=== PATIENT | female | born 1980 | race Caucasian/White ===

== ENCOUNTER 2017-10-29 07:05 | Day surgery (SDC) | payer OTHER ==
--- NOTE | 2017-10-19 12:01 | HP ---
CC: Dr. Mirian Taylor * DATE OF ADMISSION: 10/29/2017. This patient is scheduled for Same Day Surgery admission by Dr. Yin. DATE OF PREOPERATIVE HISTORY AND PHYSICAL EXAMINATION: Thursday, October 19, 2017. ATTENDING SURGEON: Dr. Marianne Yin * (dictated by Melida De Souza NP). CHIEF COMPLAINT: Right breast abnormality. HISTORY OF PRESENT ILLNESS: The patient is a 37-year-old female recently evaluated by Dr. Yin for abnormal right breast imaging. Due to her family history, the patient was advised to have a screening mammogram. This was done on 09/30/2017 and revealed a well-circumscribed mass in the right breast at the 9 o'clock position as well as a cluster of calcifications in the lateral mid portion of the right breast at the [address] Yin performed fine needle aspiration of the area 10/05/2017 and the pathology was benign. She had a right stereotactic breast biopsy 10/11/2017 and the pathology did not reveal any evidence of neoplasia. Dr. Yin discussed the findings with Dr. Bush from Radiology and plans were made for mammo-guided needle localization excision of the right breast abnormality. The patient denies any breast pain or nipple discharge. The patient's mother had breast cancer at age 49, paternal grand-mother had breast cancer at age 46 and 60. The patient's menarche was at age 11 and first delivery at age 31. She is not taking control pills. She had BRCA testing about five years ago and was negative for gene mutations. She also has a family history of ovarian cancer in her maternal grandmother who was treated with cobalt therapy and lived until age 69 when she of a sarcoma in the brain. Dr. Yin described the nature of the surgical procedure, the relevant risks and benefits, and today I reviewed the expected postoperative care and recovery. The patient has had a chance to ask questions and stated that she understands the information and is satisfied with the answers given to her questions. She will sign surgical consent on the day of surgery. PAST MEDICAL HISTORY: Generally healthy. No acute or chronic conditions. PAST SURGICAL HISTORY: [place] teeth extraction. OB HISTORY: 2, para 2. She is up-to-date with pelvic exam and pap smear within the past year. Last menstrual period 09/26/2017. MEDICATIONS: Calcium with vitamin D supplement. ALLERGIES: AUGMENTIN AND SULFA DRUGS, BOTH HAVE CAUSED RASH. FAMILY HISTORY: Mother diagnosed with breast cancer at age 49. Paternal grandmother with breast cancer at age 46 and 60. Maternal grandmother with history of ovarian cancer. No known anesthesia complications, bleeding tendencies, or clotting disorders. SOCIAL HISTORY: She is and has two young children. She is a nonsmoker. She drinks alcohol one to two times per week and exercises by walking. REVIEW OF SYSTEMS: Constitutional: No fevers, chills, excessive fatigue or weight loss. Endocrine: No diabetes or thyroid disease. Hematologic: No easy bruising or bleeding. No previous blood transfusions. Breasts: As described in history of present illness. Respiratory: No dyspnea on exertion. No chronic cough. Cardiovascular: No anginal chest pain or palpitations. Gastrointestinal: No nausea, vomiting, diarrhea, GI bleeding, or constipation. Genitourinary: No dysuria. Musculoskeletal: No back or joint pain. Neurologic: No headache or blurred vision. Normal gait. No sensory problems. General: No history of deep vein thrombosis or pulmonary embolism. No anesthesia complications. PHYSICAL EXAMINATION GENERAL: The patient is a 37-year-old female, well-developed, well-nourished, in no acute distress. VITAL SIGNS: Height 63 inches, weight 118 pounds, body mass index 20. Blood pressure 92/70, pulse 62 and regular, respiratory rate 16, temperature 97.4 tympanic. SKIN: Warm, dry, intact. HEENT: Benign. NECK: Supple, no cervical lymphadenopathy, no supraclavicular lymphadenopathy. BACK: No CVA tenderness. LUNGS: Breath sounds bilaterally clear and equal. HEART: Regular rate and rhythm. No murmurs or rubs appreciated. BREASTS: Symmetrical. The right breast has resolving ecchymosis at the 9 o' clock position at the site of the previous stereotactic biopsy, no infection. Right breast with a small rubbery mobile mass deep and located at the approximate 8 o'clock position about 8 cm from the nipple. No masses noted in the left breast. No nipple discharge. Nipples are normal to inspection. No palpable axillary lymphadenopathy. ABDOMEN: Active bowel sounds. Soft, nondistended, nontender throughout. EXTREMITIES: Warm without edema or skin ulceration. PELVIC: Exam up-to-date, not repeated. RECTAL: Exam up-to-date, not repeated. NEUROLOGIC: Alert and oriented times three, steady gait. IMPRESSION: Unspecified lump in the right breast lower outer quadrant. PLAN: Same Day Surgery admission to Dr. Yin's service on Sunday, October 29, 2017 for mammo guided needle localization excision of right breast abnormality. MATHEW DE SOUZA, ASSOCIATE PROFESSOR OF BIBLICAL STUDIES [id number]/[facility] #: [id number] RAMANA
[~2017-10-29 07:05] MED LIST: Buffered Lidocaine 0.9% SYRIN* 5 ML/SYR SYRINGE INTRADERM ONE; Dexamethasone IV* 4 MG/ML 1 ML (4 MG) IV SLOW PU ONE; Famotidine IV* 10 MG/ML 2 ML (20 mg) IV ONE
[2017-10-29] MEDS ORDERED: Lidocaine 2.5%/Prilocain 2.5%* 5 GM TUBE ONE (07:36)
[2017-10-29] MEDS ORDERED: Famotidine IV* 10 MG/ML 2 ML (20 mg) ONE (07:38)
[2017-10-29] MEDS ORDERED: Dexamethasone IV* 4 MG/ML 1 ML (4 MG) ONE (07:38)
[2017-10-29] MEDS ORDERED: Clindamycin 900 MG IVPREMIX(* 900 MG/50 ML SDV IV ONE (07:48)
[2017-10-29] MEDS ORDERED: Bupivacaine 0.5% SDV PF* 30ML VIAL ONE (09:28)
[2017-10-29] MEDS ORDERED: fentaNYL* 50 MCG/ML 2 ML VIAL (100 MCG VIAL) ONE (09:35)
[2017-10-29] MEDS ORDERED: Midazolam* 1 MG/ML 5 ML VIAL (5 MG) ONE (09:35)
[2017-10-29] MEDS ORDERED: Naloxone* 0.4 MG/ML 1 ML VIAL IV PRN (09:46)
[2017-10-29] MEDS ORDERED: HYDROcodone/ACETAMIN 5-325 MG* 1 TAB PO PRN ×2 (09:46→11:08)
[2017-10-29] MEDS ORDERED: oxyCODONE/Acetamin 5/325 MG* TAB PO PRN (09:46)
[2017-10-29] MEDS ORDERED: fentaNYL* 50 MCG/ML 2 ML VIAL (100 MCG VIAL) IV PRN (09:46)
[2017-10-29] MEDS ORDERED: Ondansetron INJ* 2 MG/ML VIAL IV PRN (09:46)
[2017-10-29] MEDS ORDERED: Propofol* 10 MG/ML 20 ML BTL IV PUSH ONE (09:56)
[2017-10-29] MEDS ORDERED: Lidocaine 2% PF * 5 ML VIAL ONE (09:56)
[2017-10-29] MEDS ORDERED: Lidocaine 1% INJ* 10 MG/ML 30 ML SDV ONE (10:11)
--- NOTE | 2017-10-29 10:57 | BRIEFOPN ---
Brief Operative Note - Surgery Procedures: Procedures MONITORING NOS (12/29/14) INJECT RH IMMUNE GLOBUL (12/29/14) 10/29/17 Op Note (dictated) Pre-op dx: right breast mammographic abnormality and palpable abnormality Post-op dx same Procedure: needle localization excision of right breast mammographic abnormality and palpable abnormality Surgeon: Humphrey Asst: none Anesth: local-MAC EBL: 20 cc Complications: none SCDs on during surgery abx: given pre-op Pt. tolerated procedure well and was transferred to in a stable condition. CL[facility]oster
--- NOTE | 2017-10-29 11:08 | RAD ---
INDICATION: Right breast indeterminate lesion, needle localization. COMPARISON: Correlation is made with prior mammograms from September 30, 2017 and October 11, 2017. TECHNIQUE: The benefits and risks of the procedure were explained to the patient. The patient consented to the exam. A timeout was performed before beginning the procedure. The patient was prepped in the usual sterile fashion. The breast was anesthetized with buffered lidocaine. Using digital mammographic guidance a needle was placed immediately adjacent to a localization clip from a prior stereotactic biopsy of the right breast. This was exchanged for a Hawkin's type wire. Postprocedure mammograms demonstrate that the wire is immediately adjacent to the anterior aspect of the localization clip. The patient tolerated the procedure without incident. IMPRESSION: SUCCESSFUL NEEDLE LOCALIZATION PROCEDURE.
[2017-10-29 11:41] VITALS: BP 108/67
--- NOTE | 2017-10-30 05:30 | OP ---
CC: Dr. Mirian Taylor * DATE OF OPERATION: 10/29/17 - SDS DATE OF : 78 SURGEON: Marianne Yin MD. CLINICAL TRIALS MANAGER: There was no therapist's assistant for this case. PRE-OP DIAGNOSIS: Right breast mammographic abnormality and lump. POST-OP DIAGNOSIS: Right breast mammographic abnormality and lump. OPERATIVE PROCEDURE: Needle localization and excision of right breast mass and lump. INDICATIONS: Ms. Lyn Bello is a 37-year-old woman who recently had identified some microcalcifications in the right breast, they were associated with a nearby palpable breast abnormality, so plans were made for needle localization of the calcifications with excision of the palpable lump along with calcifications. On the morning of surgery, she underwent needle localization without difficulty and then was brought to the operating room. DESCRIPTION OF PROCEDURE: She was placed on the OR table in a supine position and given IV sedation. The right breast was prepped and draped in the usual sterile fashion taking care not to dislodge the localizing wire. After infiltrating with local anesthetic, a curvilinear elliptical incision encompassing the wire was made. Subcutaneous tissue was divided with electrocautery to excise the mass and the microcalcifications. The specimen was marked in usual fashion and handed off. Hemostasis was achieved with electrocautery. The report came back from radiology that this specimen contained everything and then closure was accomplished. This was done with 3-0 Vicryl in the subcutaneous layer and the skin was closed with 4-0 Prolene in a subcuticular fashion. Prior to closing, additional local was instilled into the wound. Steri-Strips and a dry sterile dressing were applied. All sponge and instrument counts were correct. The patient tolerated the procedure well and was transferred to recovery room in stable condition. [id number]/[facility] #: [id number] [facility]
== END 2017-10-29 11:47 | disposition home or self-care (01) ==
LOC: SDS 07:05
PROVIDERS: ATTEND Surgery
DX: D24.1 Benign neoplasm of right breast (principal); N63.10 Unspecified lump in the right breast, unspecified quadrant; I88.8 Other nonspecific lymphadenitis; Z88.2 Allergy status to sulfonamides; Z88.8 Allergy status to other drugs, medicaments and biological substances
CPT/HCPCS: 81025; 88307; A9270-GY; J1100; J2250; J2704; J3010